=== PATIENT | male | born 1930 | race Caucasian/White ===

== ENCOUNTER 2017-02-05 05:55 | Day surgery (SDC) | payer BC ==
[2017-02-02 13:10] LABS: HEMATOCRIT 43.8 % (40.0-51.0); HEMOGLOBIN 15.4 g/dL (13.6-17.8)
[2017-02-02 13:26] LABS: CALCIUM, SERUM 9.3 MG/DL (8.5-10.4); CHLORIDE, SERUM 106 MMOL/L (96-112); CO2 (CARBON DIOXIDE) 29 MMOL/L (24-34); CREATININE 1.16 MG/DL (0.70-1.30); GFR AFRICAN AMERICAN 66 ML/MIN (>=60); GFR NON AFRICAN AMERICAN 57 ML/MIN (>=60); POTASSIUM, SERUM 4.4 MMOL/L (3.5-5.3); SODIUM, SERUM 143 MMOL/L (135-148)
[2017-02-02 13:27] LABS: BUN (BLOOD UREA NITROGEN) 18 MG/DL (6-23); GLUCOSE, SERUM 105 MG/DL (60-99)
[~2017-02-05 05:55] MED LIST: ASAB PO; ATV1 PO; CO Q-10100 MG PO; CRESTOR5 MG PO; DSS PO; FLOMAX4 PO; HYDROCHLOROT12.5 MG PO; HYDROCHLOROT25 MG PO; JANTOVEN5 MG PO; JANTOVEN6 MG PO; LOP25 PO; MEP50TAB PO; NIACOR500 MG PO; NORCO1 TA1 PO; NORV10 PO; P10 PO; PEPCID40 MG OR; PR25 PO; PRIN10 PO; PRIN20 PO; ROB1T PO; SENTAB PO; Z-PACK PO; Z300 PO; ZOCOR20 PO
[2017-02-05 06:29] LABS: INTERNATIONAL NORMAL RATI 2.4 UNITS (-)
[2017-02-05 06:30] LABS: PROTIME (NOT ORD) 25.8 SEC (12.0-14.5)
== END 2017-02-05 10:26 | disposition home or self-care (01) ==
LOC: SDC 05:55
PROVIDERS: Ophthalmology
PROC: 08RK3JZ Replacement of Left Lens with Synthetic Substitute, Percutaneous Approach (ICD-10-PCS; principal; 2017-02-05 07:45)
DX: H25.12 Age-related nuclear cataract, left eye (principal); I10 Essential (primary) hypertension; E78.5 Hyperlipidemia, unspecified; Z95.0 Presence of cardiac pacemaker; I25.10 Atherosclerotic heart disease of native coronary artery without angina pectoris; Z95.1 Presence of aortocoronary bypass graft; Z88.5 Allergy status to narcotic agent; Z90.89 Acquired absence of other organs; Z98.890 Other specified postprocedural states
CPT/HCPCS: 80048; 85014; 85018; 85610; 93005; J2405